=== PATIENT | female | born 1960 | race Caucasian/White ===

== ENCOUNTER 2019-09-20 09:59 | Emergency (ER) | payer BC, SELFPAY ==
[2019-09-20 10:17] VITALS: BP 131/86; PULSE 70
--- NOTE | 2019-09-20 11:38 | EDM.PDOC ---
ED HPI GENERAL MEDICAL PROBLEM - General Chief Complaint: Respiratory Problem Stated Complaint: CONGESTED/PAIN WHILE URINATING Time Seen by Provider: 09/20/19 11:05 Source of Information: Reports: Patient History Limitations: Reports: No Limitations - History of Present Illness INITIAL COMMENTS - FREE TEXT/NARRATIVE: Patient is a 59-year-old female who presents with complaints of cough, congestion, body aches, headache, and dizziness that started on Saturday. She states her symptoms were the worst on Saturday and have been fairly consistent since that time. She also complains of some burning with urination that started yesterday as well as left flank pain for the last week. She did have an influenza vaccine this year. Denies any nausea, vomiting, or diarrhea. Denies any chronic health problems. States she was recently out in [place] and did have numerous sick contacts while there. Left Flank Pain Score (Numeric/FACES): 4 - Related Data Allergies Allergy/AdvReac Type Severity Reaction Status Date / Time Iodinated Contrast Media Allergy Itching Verified 09/20/19 10:09 [Iodinated Contrast Media - IV Dye] Sulfa (Sulfonamide Allergy Hives Verified 09/20/19 10:09 Antibiotics) Home Meds: Home Meds LORazepam [Ativan] 0.5 mg PO DAILY PRN 02/11/16 [History] Multivitamin [Multivitamins] 1 each PO DAILY 02/11/16 [History] amLODIPine [Norvasc] 2.5 mg PO DAILY 02/11/16 [History] Ciprofloxacin HCl [Cipro] 500 mg PO BID #10 tablet 09/20/19 [Rx] Codeine/Promethazine [Phenergan with Codeine] 5 ml PO Q4HR PRN #100 ml 09/20/19 [Rx] Sertraline HCl [Zoloft] 100 mg PO DAILY 09/20/19 [History] Past Medical History 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 ED EXAM, GENERAL - Physical Exam Exam: See Below Exam Limited By: No Limitations General Appearance: Alert, WD/WN, No Apparent Distress Ears: Normal External Exam, Normal Canal, Hearing Grossly Normal, Normal TMs Nose: Normal Inspection, No Blood, Clear Rhinorrhea Throat/Mouth: Normal Inspection, Normal Lips, Normal Teeth, Normal Gums, Normal Oropharynx, Normal Voice, No Airway Compromise Head: Atraumatic, Normocephalic, Sinus Tenderness Neck: Normal Inspection, Supple, Non-Tender, Full Range of Motion Respiratory/Chest: No Respiratory Distress, Lungs Clear, Normal Breath Sounds, No Accessory Muscle Use, Chest Non-Tender Cardiovascular: Normal Peripheral Pulses, Regular Rate, Rhythm, No Edema, No Gallop, No JVD, No Murmur, No Rub Back Exam: Normal Inspection, Other (Tenderness to the left low flank. Appears to be superficial as is reproducible with only light touch.). No: CVA Tenderness (L), CVA Tenderness (R) Neurological: Alert, Oriented, CN II-XII Intact, Normal Cognition, Normal Gait, Normal Reflexes, No Motor/Sensory Deficits Psychiatric: Normal Affect, Normal Mood Skin Exam: Warm, Dry, Intact, Normal Color, No Rash Course - Vital Signs Last Recorded V/S: Last Vital Signs Temp 97.4 F 09/20/19 10:13 Pulse 70 09/20/19 10:13 Resp 13 09/20/19 10:13 BP 131/86 09/20/19 10:13 Pulse Ox 99 09/20/19 10:13 - Orders/Labs/Meds Orders: Active Orders 24 hr Category Date Time Status CULTURE URINE [RM] Routine Lab 09/20/19 10:05 Received Labs: Laboratory Tests 09/20/19 Range/Units 10:05 Urine Color Yellow (Yellow) Urine Appearance Clear (Clear) Urine pH 7.0 (5.0-8.0) Ur Specific [place] 1.020 (1.005-1.030) Urine Protein Negative (Negative) Urine Glucose (UA) Negative (Negative) Urine Ketones Negative (Negative) Urine Occult Blood Trace-intact H (Negative) Urine Nitrite Negative (Negative) Urine Bilirubin Negative (Negative) Urine Urobilinogen 0.2 (0.2-1.0) Ur Leukocyte Esterase Trace H (Negative) Urine RBC 0-5 (0-5) /hpf Urine WBC 0-5 (0-5) /hpf Ur Epithelial Cells 0-5 (0-5) /hpf Urine Bacteria Rare (FEW) /hpf Urine Mucus Rare (FEW) /hpf - Re-Assessments/Exams Free Text/Narrative Re-Assessment/Exam: 09/20/19 12:14 Urinalysis was positive for trace leukocyte esterase, micro was otherwise normal. We will treat for urinary tract infection based on patient's symptoms. Influenza screen was negative. Discussed that she likely has a viral illness. With regard to her flank pain, on exam, it is quite superficial. There are no lesions present at this time, however I did recommend that she monitor the area and if any rash or lesions should develop she should follow-up for shingles. Pain may also just be musculoskeletal in nature. We will discharge her home with a prescription for Cipro as well as Phenergan with codeine for her cough. Discharge instructions as documented. Departure - Departure Time of Disposition: 12:15 Disposition: Home, Self-Care 01 Condition: Fair Clinical Impression: Viral illness UTI (urinary tract infection) Qualifiers: Urinary tract infection type: acute cystitis Hematuria presence: without hematuria Qualified Code(s): N30.00 - Acute cystitis without hematuria - Discharge Information *PRESCRIPTION DRUG MONITORING PROGRAM REVIEWED*: No *COPY OF PRESCRIPTION DRUG MONITORING REPORT IN PATIENT CELIO: No Prescriptions: Codeine/Promethazine [Phenergan with Codeine] 5 ml PO Q4HR PRN #100 ml PRN Reason: Cough Ciprofloxacin HCl [Cipro] 500 mg PO BID #10 tablet Instructions: Urinary Tract Infection, Adult, Viral Respiratory Infection Referrals: Annamaria Vazquez PLASTICS SCIENTIST [Primary Care Provider] - Forms: ED Department Discharge Additional Instructions: You were seen in the emergency department today for burning with urination, as well as flulike symptoms and flank pain. Your urinalysis did show some evidence of a mild infection. You have been started on Cipro. Take this medication as prescribed. Your influenza screen was negative. It is likely that you are also suffering from a viral respiratory illness. Treatment of this is symptomatic. You may continue to use your Flonase and Layne pot as needed. Take Tylenol or ibuprofen as needed for any discomfort. Ensure that you are taking in an adequate amount of fluid. With regard to the pain on your left side. I would continue to monitor the area and if any lesions or rashes should develop, recommend you follow-up as this could be shingles. It may also just be a musculoskeletal pain related to your viral illness. A prescription for Phenergan with codeine has been sent to [facility] in addition to your Cipro. Take this medication as prescribed for cough. If you should experience any worsening symptoms, please do not hesitate to return to the emergency department or follow-up with your primary care provider. Sepsis Event Note - Evaluation Sepsis Screening Result: No Definite Risk - Focused Exam Vital Signs: Vital Signs Temp Pulse Resp BP Pulse Ox 09/20/19 10:13 97.4 F 70 13 131/86 99 Date Exam was Performed: 09/20/19 Time Exam was Performed: 13:04
== END 2019-09-20 12:40 | disposition home or self-care (01) ==
LOC: JD.ED 09:59
DX: B34.9 Viral infection, unspecified (principal); N30.00 Acute cystitis without hematuria; I10 Essential (primary) hypertension; F41.9 Anxiety disorder, unspecified; F17.210 Nicotine dependence, cigarettes, uncomplicated; Z88.2 Allergy status to sulfonamides; Z91.041 Radiographic dye allergy status; Z79.899 Other long term (current) drug therapy
CPT/HCPCS: 81001; 87086; 87804; 99283

== ENCOUNTER 2020-12-31 21:35 | Emergency (ER) | payer BC ==
--- NOTE | 2020-12-31 21:44 | EDM.PDOC ---
ED HPI GENERAL MEDICAL PROBLEM - General Chief Complaint: General Stated Complaint: NO TASTE OR SMELL AND THROAT PAIN POSSIBLE COVID? Time Seen by Provider: 12/31/20 21:43 - History of Present Illness INITIAL COMMENTS - FREE TEXT/NARRATIVE: 60-year-old female comes in with developing aches and pains cough lost of taste and smell. Patient has had Covid and she has had both her vaccine series. Couple of days ago she just felt achy all over has not had much of a fever this seemed to improve a little bit then earlier today developed some nasal congestion and with this she lost her smell and to some degree part of her taste. She is not aware of any fevers or chills. She has not had any chest pain chest pressure breathing difficulties or shortness of breath associated with this. Chest Pain Score (Numeric/FACES): 9 - Related Data Allergies Allergy/AdvReac Type Severity Reaction Status Date / Time Iodinated Contrast Media Allergy Itching Verified 12/31/20 21:43 [Iodinated Contrast Media - IV Dye] Sulfa (Sulfonamide Allergy Hives Verified 12/31/20 21:43 Antibiotics) Home Meds: Home Meds LORazepam [Ativan] 0.5 mg PO DAILY PRN 02/11/16 [History] Multivitamin [Multivitamins] 1 each PO DAILY 02/11/16 [History] amLODIPine [Norvasc] 10 mg PO DAILY 02/11/16 [History] Calcium Carbonate [Calcium] 1,200 mg PO 12/31/20 [History] Venlafaxine [Effexor XR] 150 mg PO BEDTIME 12/31/20 [History] Past Medical History 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 Denies: Shortness of Breath, Wheezing, Sputum Cardiovascular: Reports: No Symptoms GI/Abdominal: Reports: No Symptoms : Reports: No Symptoms Musculoskeletal: Reports: Other (Generalized achiness) Skin: Reports: No Symptoms Neurological: Reports: No Symptoms Psychiatric: Reports: No Symptoms Hematologic/Lymphatic: Reports: No Symptoms ED EXAM, GENERAL - Physical Exam Exam: See Below Exam Limited By: No Limitations General Appearance: Alert, No Apparent Distress Eye Exam: Bilateral Eye: Normal Inspection Ears: Normal External Exam, Normal Canal, Hearing Grossly Normal, Normal TMs Nose: Normal Inspection, Normal Mucosa, Clear Rhinorrhea (Very small amount) Throat/Mouth: Normal Inspection, Normal Lips, Normal Teeth, Normal Gums, Normal Oropharynx, Normal Voice, No Airway Compromise Head: Atraumatic, Normocephalic Neck: Normal Inspection, Supple, Non-Tender, Full Range of Motion. No: Lymphadenopathy (L), Lymphadenopathy (R) Respiratory/Chest: No Respiratory Distress, Lungs Clear, Normal Breath Sounds Cardiovascular: Regular Rate, Rhythm, No Edema, No Murmur GI/Abdominal: Normal Bowel Sounds, Soft, Non-Tender Course - Vital Signs Last Recorded V/S: Last Vital Signs Temp 36.2 C 12/31/20 21:48 Pulse 89 12/31/20 21:48 Resp 18 12/31/20 21:48 BP 134/81 12/31/20 21:48 Pulse Ox 98 12/31/20 21:48 - Orders/Labs/Meds Orders: Active Orders 24 hr Category Date Time Status Chest 1V Frontal [CR] Stat Exams 12/31/20 22:01 Taken Labs: Laboratory Tests 12/31/20 12/31/20 12/31/20 Range/Units 22:10 22:10 22:10 WBC 13.05 H (3.98-10.04) K/mm3 RBC 4.11 (3.98-5.22) M/mm3 Hgb 12.7 D (11.2-15.7) gm/dl Hct 38.3 (34.1-44.9) % MCV 93.2 (79.4-94.8) fl MCH 30.9 (25.6-32.2) pg MCHC 33.2 (32.2-35.5) g/dl RDW Std Deviation 41.1 (36.4-46.3) fL Plt Count 293 (182-369) K/mm3 MPV 9.4 (9.4-12.3) fl Neutrophils % (Manual) 56 (40-60) % Band Neutrophils % 0 (0-10) % Lymphocytes % (Manual) 35 (20-40) % Atypical Lymphs % 0 % Monocytes % (Manual) 4 (2-10) % Eosinophils % (Manual) 4 (0.7-5.8) % Basophils % (Manual) 1 (0.1-1.2) Platelet Estimate Adequate RBC Morph Comment Normal Sodium 143 (136-145) mEq/L Potassium 3.4 L (3.5-5.1) mEq/L Chloride 108 H (98-107) mEq/L Carbon Dioxide 28 (21-32) mEq/L Anion Gap 10.4 (5-15) BUN 13 (7-18) mg/dL Creatinine 0.9 (0.55-1.02) mg/dL Est Cr Clr Drug Dosing 58.12 mL/min Estimated GFR (MDRD) > 60 (>60) mL/min BUN/Creatinine Ratio 14.4 (14-18) Glucose 156 H (70-99) mg/dL Calcium 8.5 (8.5-10.1) mg/dL Ferritin 151 (8-252) ng/ml Total Bilirubin 0.2 (0.2-1.0) mg/dL AST 20 (15-37) U/L ALT 29 (14-59) U/L Alkaline Phosphatase 112 (46-116) U/L C-Reactive Protein 1.1 H* (<1.0) mg/dL Total Protein 6.3 L (6.4-8.2) g/dl Albumin 3.6 (3.4-5.0) g/dl Globulin 2.7 gm/dL Albumin/Globulin Ratio 1.3 (1-2) Influenza Type A RNA (NEGATIVE) Influenza Type B RNA (NEGATIVE) SARS-CoV-2 RNA (MARIYA) (NEGATIVE) 12/31/20 Range/Units 23:58 WBC (3.98-10.04) K/mm3 RBC (3.98-5.22) M/mm3 Hgb (11.2-15.7) gm/dl Hct (34.1-44.9) % MCV (79.4-94.8) fl MCH (25.6-32.2) pg MCHC (32.2-35.5) g/dl RDW Std Deviation (36.4-46.3) fL Plt Count (182-369) K/mm3 MPV (9.4-12.3) fl Neutrophils % (Manual) (40-60) % Band Neutrophils % (0-10) % Lymphocytes % (Manual) (20-40) % Atypical Lymphs % % Monocytes % (Manual) (2-10) % Eosinophils % (Manual) (0.7-5.8) % Basophils % (Manual) (0.1-1.2) Platelet Estimate RBC Morph Comment Sodium (136-145) mEq/L Potassium (3.5-5.1) mEq/L Chloride (98-107) mEq/L Carbon Dioxide (21-32) mEq/L Anion Gap (5-15) BUN (7-18) mg/dL Creatinine (0.55-1.02) mg/dL Est Cr Clr Drug Dosing mL/min Estimated GFR (MDRD) (>60) mL/min BUN/Creatinine Ratio (14-18) Glucose (70-99) mg/dL Calcium (8.5-10.1) mg/dL Ferritin (8-252) ng/ml Total Bilirubin (0.2-1.0) mg/dL AST (15-37) U/L ALT (14-59) U/L Alkaline Phosphatase (46-116) U/L C-Reactive Protein (<1.0) mg/dL Total Protein (6.4-8.2) g/dl Albumin (3.4-5.0) g/dl Globulin gm/dL Albumin/Globulin Ratio (1-2) Influenza Type A RNA Negative (NEGATIVE) Influenza Type B RNA Negative (NEGATIVE) SARS-CoV-2 RNA (MARIYA) Negative (NEGATIVE) Meds: Medications Discontinued Medications Generic Name Dose Route Start Last Admin Trade Name Freq PRN Reason Stop Dose Admin Potassium Chloride 40 meq 12/31/20 23:53 12/31/20 23:58 Potassium Chloride 20 Meq Tab.Er PO 12/31/20 23:54 40 meq ONETIME ONE Administration - Re-Assessments/Exams Free Text/Narrative Re-Assessment/Exam: 01/01/21 01:42 Patient's chest x-ray is nondiagnostic laboratory work is nondiagnostic testing for influenza and Covid is negative. White count is slightly elevated potassium is a little low she is given 40 mEq of oral potassium here. At this point we will go ahead and discharge her home. Departure - Departure Time of Disposition: 01:42 Disposition: Home, Self-Care 01 Clinical Impression: Viral illness - Discharge Information Referrals: Annamaria Vazquez, MECHANICAL PROJECT MANAGER [Primary Care Provider] - Forms: ED Department Discharge Additional Instructions: Return to the emergency room with any questions problems or worsening symptoms. Push lots of fluids. Tylenol as needed for fever aches and pains and discomfort. Sepsis Event Note (ED) - Focused Exam Vital Signs: Vital Signs Temp Pulse Resp BP Pulse Ox 12/31/20 21:48 36.2 C 89 18 134/81 98 - My Orders Last 24 Hours: My Active Orders 12/31/20 22:01 Chest 1V Frontal [CR] Stat - Assessment/Plan Last 24 Hours: My Active Orders 12/31/20 22:01 Chest 1V Frontal [CR] Stat
[2020-12-31 21:52] VITALS: BP 134/81; PULSE 89
[2020-12-31] MEDS ORDERED: Potassium Chloride 20 MEQ Tab.ER PO ONE (23:53)
[2021-01-01 00:50] LABS: CORONAVIRUS COVID-19 NAA NEGATIVE (NEGATIVE)
--- NOTE | 2021-01-03 10:43 | CR ---
Chest: Portable view of the chest was obtained. Comparison: Prior chest x-ray of 05/18/19. Heart size and mediastinum are within normal limits. Lung markings are slightly increased which are believed to be related to portable technique. Lungs otherwise are clear with no acute parenchymal change. No acute osseous abnormality is appreciated. Impression: 1. Nothing acute is appreciated on portable chest x-ray. Diagnostic code #2
== END 2021-01-01 01:51 | disposition home or self-care (01) ==
LOC: JD.ED 21:35
DX: B34.9 Viral infection, unspecified (principal); I10 Essential (primary) hypertension; Z91.041 Radiographic dye allergy status; Z88.2 Allergy status to sulfonamides; Z20.822 Contact with and (suspected) exposure to COVID-19
CPT/HCPCS: 0240U; 36415; 71045; 71045-26; 80053; 82728; 85007; 85027; 86140; 99282; 99283-25; A9270-GY

== ENCOUNTER 2022-02-12 08:16 | Day surgery (SDC) | payer BC ==
[~2022-02-12 08:16] MED LIST: Lactated Ringers 1,000 ML IV SCH; Lidocaine 1%/Sod Bicarbonate in NS 8.4% 1 ML Syringe IDERM PRN; Midazolam 1 MG/ML 2 ML SDV ONE; Morphine 8 MG, EPINEPHrine 0.3 MG, Cefuroxime 750 MG, Ketorolac 30 MG, Sodium Chloride ... PRN; Propofol 200 MG/20 ML SDV ONE; Sodium Chloride 0.9% 10 ML Syringe FLUSH PRN; Sodium Chloride 0.9% 10 ML Syringe FLUSH SCH; ceFAZolin 2 GM Vial ONE; fentaNYL 100 MCG/2 ML SDV ONE
[2022-02-12] MEDS ORDERED: Vancomycin 1 GM SDV ONE (09:12)
[2022-02-12] MEDS ORDERED: ePHEDrine 50 MG/ML SDV ONE (10:46)
[2022-02-12] MEDS ORDERED: Phenylephrine 1% 10 MG/ML SDV ONE (10:57)
[2022-02-12] MEDS ORDERED: Lactated Ringers 1,000 ML ONE ×2 (11:13)
[2022-02-12] MEDS ORDERED: Ondansetron 4 MG/2 ML SDV IVPUSH PRN (11:30)
[2022-02-12] MEDS ORDERED: HYDROmorphone 0.5 MG/0.5 ML Syringe IVPUSH PRN (11:30)
[2022-02-12] MEDS ORDERED: fentaNYL 100 MCG/2 ML SDV IVPUSH PRN (11:30)
[2022-02-12] MEDS ORDERED: Ketorolac 30 MG/ML SDV ONE (11:32)
[2022-02-12] MEDS ORDERED: Acetaminophen/Codeine 300-30 MG Tab PO SCH (12:01)
[2022-02-12 15:15] VITALS: BP 128/70; PULSE 60
== END 2022-02-12 14:43 | disposition home or self-care (01) ==
LOC: JD.SDS 08:16
PROVIDERS: ATTEND Orthopaedic Surgery
DX: M16.12 Unilateral primary osteoarthritis, left hip (principal); F41.9 Anxiety disorder, unspecified; F32.A Depression, unspecified; K21.9 Gastro-esophageal reflux disease without esophagitis; I10 Essential (primary) hypertension; E78.5 Hyperlipidemia, unspecified; F17.210 Nicotine dependence, cigarettes, uncomplicated; D72.829 Elevated white blood cell count, unspecified; M81.0 Age-related osteoporosis without current pathological fracture; Z88.2 Allergy status to sulfonamides; Z88.8 Allergy status to other drugs, medicaments and biological substances; Z79.899 Other long term (current) drug therapy; Z98.890 Other specified postprocedural states
CPT/HCPCS: 0055T; 27130; 36415; 73501; 86850; 86900; 86901; 97116; 97161; C1713; C1776; J0171; J0690; J0697; J1885; J2250; J2270; J2370; J2405; J2704; J3010; J3370; J7120; 01214

== ENCOUNTER 2022-05-06 14:25 | Emergency (ER) | payer BC ==
[2022-05-06 14:48] VITALS: BP 152/84; PULSE 78
== END 2022-05-06 15:45 | disposition home or self-care (01) ==
LOC: JD.ED 14:25
DX: H43.392 Other vitreous opacities, left eye (principal); E78.00 Pure hypercholesterolemia, unspecified; I10 Essential (primary) hypertension; F17.210 Nicotine dependence, cigarettes, uncomplicated; Z86.16 Personal history of COVID-19; Z88.2 Allergy status to sulfonamides; Z88.8 Allergy status to other drugs, medicaments and biological substances; Z79.899 Other long term (current) drug therapy
CPT/HCPCS: 99283

== ENCOUNTER 2023-01-13 14:03 | Emergency (ER) | payer BC ==
[2023-01-13 14:27] VITALS: BP 154/77; PULSE 82
[2023-01-13] MEDS ORDERED: Metoclopramide 10 MG Tab PO ONE (15:13)
== END 2023-01-13 17:20 | disposition home or self-care (01) ==
LOC: JD.ED 14:03
DX: R42 Dizziness and giddiness (principal); E78.00 Pure hypercholesterolemia, unspecified; I10 Essential (primary) hypertension; Z86.16 Personal history of COVID-19; Z79.899 Other long term (current) drug therapy; Z88.2 Allergy status to sulfonamides; Z88.8 Allergy status to other drugs, medicaments and biological substances
CPT/HCPCS: 99283; A9270

== ENCOUNTER 2023-02-04 19:26 | Emergency (ER) | payer BC ==
[2023-02-04 19:59] VITALS: BP 137/89; PULSE 96
[2023-02-04] MEDS ORDERED: Fluconazole 150 MG Tab PO ONE (20:22)
== END 2023-02-04 20:55 | disposition home or self-care (01) ==
LOC: JD.ED 19:26
DX: H10.33 Unspecified acute conjunctivitis, bilateral (principal); J03.90 Acute tonsillitis, unspecified; E78.00 Pure hypercholesterolemia, unspecified; I10 Essential (primary) hypertension; Z86.16 Personal history of COVID-19; Z88.2 Allergy status to sulfonamides; Z88.8 Allergy status to other drugs, medicaments and biological substances; Z79.899 Other long term (current) drug therapy
CPT/HCPCS: 99283; A9270

== ENCOUNTER 2025-02-24 13:47 | Emergency (ER) | payer BC ==
[2025-02-24 14:43] LABS: BASOPHILS ABSOLUTE AUTO 0.1 K/mm3 (0.0-0.2); BASOPHILS PERCENT AUTO 0.7 % (0.0-1.0); EOSINOPHILS ABSOLUTE AUTO 0.3 K/mm3 (0.0-0.4); EOSINOPHILS PERCENT AUTO 3.7 % (0.0-6.0); IMMATURE GRAN ABSOLUTE AUTO 0.07 K/mm3 (0.00-0.05); IMMATURE GRAN PERCENT AUTO 0.8 % (0.0-0.4); LYMPHOCYTES ABSOLUTE AUTO 3.1 K/mm3 (1.0-4.8); LYMPHOCYTES PERCENT AUTO 35.6 % (24.0-44.0); MEAN PLATELET VOLUME 9.6 fl (9.4-12.3); MONOCYTES ABSOLUTE AUTO 0.5 K/mm3 (0.0-0.8); MONOCYTES PERCENT AUTO 5.2 % (0.0-8.0); NEUTROPHILS ABSOLUTE AUTO 4.7 K/mm3 (1.8-7.7); NEUTROPHILS PERCENT AUTO 54.0 % (41.0-71.0); NRBC ABSOLUTE 0.00 (0.00-0.02); NRBC PERCENT 0.0 % (0.0-0.2); PLATELET COUNT,PLT 270 K/mm3 (150-400); RED BLOOD CELL COUNT 4.28 M/mm3 (4.10-5.30); WHITE BLOOD CELL COUNT,WBC 8.62 K/mm3 (3.9-11.3)
[2025-02-24 15:01] LABS: A/G RATIO 1.4 (1-2); ALANINE AMINOTRANSFERASE,ALT 35.0 U/L (14-59); ASPARTATE AMNIOTRANSFERASE,AST 31.0 U/L (15-37); BILIRUBIN TOTAL 0.4 mg/dL (0.2-1.0); BLOOD UREA NITROGEN,BUN 7.0 mg/dL (7-18); CARBON DIOXIDE,CO2 26.0 mEq/L (21-32); CHLORIDE,CL 96.0 mEq/L (98-107); CREATININE 0.7 mg/dL (0.55-1.02); EST CRCL DRUG DOSING (CG) 71.03 mL/min; ESTIMATED GFR 97.0 mL/min (>60); GLUCOSE RANDOM 149.0 mg/dL (70-99); POTASSIUM,K 3.2 mEq/L (3.5-5.1); PROTEIN TOTAL,TP 6.2 g/dl (6.4-8.2); TROPONIN I HIGH SENSITIVITY 6.0 pg/mL (<=51); TSH 1.335 uIU/mL (0.358-3.74)
[2025-02-24 15:06] LABS: SODIUM,NA 130.0 mEq/L (136-145)
[2025-02-24] MEDS: Ketorolac 30 MG/ML SDV IVPUSH ONE (15:38)
[2025-02-24 16:58] VITALS: BP 126/69; PULSE 68
== END 2025-02-24 16:53 | disposition home or self-care (01) ==
LOC: JD.ED 13:47
DX: M54.50 Low back pain, unspecified (principal); J01.90 Acute sinusitis, unspecified; M25.551 Pain in right hip; I10 Essential (primary) hypertension; E78.00 Pure hypercholesterolemia, unspecified; F17.200 Nicotine dependence, unspecified, uncomplicated; Z88.2 Allergy status to sulfonamides; Z88.8 Allergy status to other drugs, medicaments and biological substances; Z79.899 Other long term (current) drug therapy; Z86.16 Personal history of COVID-19; Z90.710 Acquired absence of both cervix and uterus
CPT/HCPCS: 36415; 71046; 80053; 84443; 84484; 85025; 93005; 96361; 96374; 99284; J1885; J7030

== ENCOUNTER 2025-02-25 12:04 | Emergency (ER) | payer BC ==
[2025-02-25] MEDS ORDERED: Ketorolac 30 MG/ML SDV IVPUSH ONE (12:46)
[2025-02-25] MEDS: Ketorolac 30 MG/ML SDV IM ONE (12:56)
[2025-02-25 14:44] VITALS: BP 141/79; PULSE 59
== END 2025-02-25 14:30 | disposition home or self-care (01) ==
LOC: JD.ED 12:04
DX: I10 Essential (primary) hypertension (principal); M25.551 Pain in right hip; E78.00 Pure hypercholesterolemia, unspecified; Z88.2 Allergy status to sulfonamides; Z88.8 Allergy status to other drugs, medicaments and biological substances; Z79.899 Other long term (current) drug therapy; Z86.16 Personal history of COVID-19; Z90.710 Acquired absence of both cervix and uterus
CPT/HCPCS: 96372; 99283; A9270; J1885

== ENCOUNTER 2025-07-09 11:00 | Emergency (ER) | payer BC, OTHER ==
[2025-07-09] MEDS ORDERED: Sodium Chloride 0.9% 10 ML Syringe FLUSH PRN (11:16)
[2025-07-09 11:27] LABS: BASOPHILS ABSOLUTE AUTO 0.1 K/mm3 (0.0-0.2); BASOPHILS PERCENT AUTO 1.1 % (0.0-1.0); EOSINOPHILS ABSOLUTE AUTO 0.2 K/mm3 (0.0-0.4); EOSINOPHILS PERCENT AUTO 2.7 % (0.0-6.0); IMMATURE GRAN ABSOLUTE AUTO 0.04 K/mm3 (0.00-0.05); IMMATURE GRAN PERCENT AUTO 0.5 % (0.0-0.4); LYMPHOCYTES ABSOLUTE AUTO 3.2 K/mm3 (1.0-4.8); LYMPHOCYTES PERCENT AUTO 39.0 % (24.0-44.0); MEAN PLATELET VOLUME 9.8 fl (9.4-12.3); MONOCYTES ABSOLUTE AUTO 0.5 K/mm3 (0.0-0.8); MONOCYTES PERCENT AUTO 6.2 % (0.0-8.0); NEUTROPHILS ABSOLUTE AUTO 4.2 K/mm3 (1.8-7.7); NEUTROPHILS PERCENT AUTO 50.5 % (41.0-71.0); NRBC ABSOLUTE 0.00 (0.00-0.02); NRBC PERCENT 0.0 % (0.0-0.2); PLATELET COUNT,PLT 306 K/mm3 (150-400); RED BLOOD CELL COUNT 5.19 M/mm3 (4.10-5.30); WHITE BLOOD CELL COUNT,WBC 8.21 K/mm3 (3.9-11.3)
[2025-07-09] MEDS: Iopamidol 612 MG/ML 100 ML Bottle IVPUSH ONE (11:33)
[2025-07-09] MEDS: Sodium Chloride 0.9% 10 ML Syringe FLUSH PRN ×2 (11:33→11:54)
[2025-07-09 11:38] LABS: INR 0.98
[2025-07-09 11:39] LABS: PTT,PARTIAL THROMBOPLSTIN TIME 27.1 SECONDS (21.7-31.4)
[2025-07-09 11:42] LABS: A/G RATIO 1.1 (1-2); ALANINE AMINOTRANSFERASE,ALT 22.0 U/L (14-59); ASPARTATE AMNIOTRANSFERASE,AST 19.0 U/L (15-37); BILIRUBIN TOTAL 0.6 mg/dL (0.2-1.0); BLOOD UREA NITROGEN,BUN 12.0 mg/dL (7-18); CARBON DIOXIDE,CO2 28.0 mEq/L (21-32); CHLORIDE,CL 101.0 mEq/L (98-107); CREATININE 0.8 mg/dL (0.55-1.02); EST CRCL DRUG DOSING (CG) 62.15 mL/min; ESTIMATED GFR 83.0 mL/min (>60); GLUCOSE RANDOM 115.0 mg/dL (70-99); POTASSIUM,K 3.9 mEq/L (3.5-5.1); PROTEIN TOTAL,TP 7.5 g/dl (6.4-8.2); SODIUM,NA 138.0 mEq/L (136-145); TROPONIN I HIGH SENSITIVITY 4.0 pg/mL (<=51)
[2025-07-09 12:40] LABS: APPEARANCE,URINE CLEAR (Clear); GLUCOSE,URINE NEGATIVE (Negative); OCCULT BLOOD,URINE NEGATIVE (Negative)
[2025-07-09 18:37] VITALS: BP 112/70; PULSE 79
== END 2025-07-09 18:22 | disposition home or self-care (01) ==
LOC: JD.ED 11:00
DX: G51.0 Bell's palsy (principal); I10 Essential (primary) hypertension; E78.00 Pure hypercholesterolemia, unspecified; Z88.8 Allergy status to other drugs, medicaments and biological substances; Z88.2 Allergy status to sulfonamides; Z79.899 Other long term (current) drug therapy; Z86.16 Personal history of COVID-19; Z90.710 Acquired absence of both cervix and uterus
CPT/HCPCS: 36415; 70450; 70496; 70498; 70551; 71045; 73030; 80053; 81003; 82947; 83735; 84484; 85025; 85610; 85730; 93005; 99284; A9270; J7030; Q9967